=== PATIENT | female | born 1975 | race Caucasian/White ===

== ENCOUNTER → 2017-05-04 | Outpatient (CLI) | payer OTHER | END | disposition home or self-care (01) | LOC: RAD 04-16 14:00 → EDSTATUS 04-30 14:00 → RAD 13:43 | PROC: 3E0U33Z Introduction of Anti-inflammatory into Joints, Percutaneous Approach (ICD-10-PCS; principal; 2017-05-04) | DX: M25.552 Pain in left hip (principal) | CPT/HCPCS: 77012; J3301 ==

== ENCOUNTER 2018-05-22 19:13 | Emergency (ER) | payer OTHER ==
[~2018-05-22] VITALS: Ht 170.2 cm; Wt 125.3 kg
[2018-05-22 19:32] LABS: HEMOGLOBIN 12.7 G/DL (11.9-15.5); MCH 29.3 PG (29.0-34.0); MCHC 33.4 G/DL (30.0-36.0); MCV 87.8 FL (83-99); PLATELET COUNT 293 K/uL (156-360); RBC DIS.WIDTH-SD 40.9 % (39-53); RED BLOOD COUNT 4.33 M/uL (3.80-5.20); WHITE BLOOD COUNT 8.9 K/uL (4.1-10.2)
[2018-05-22 19:40] LABS: CHLORIDE 107 mEq/L (99-109); POTASSIUM 4.1 mEq/L (3.7-5.4); SODIUM 139 mEq/L (136-147)
[2018-05-22 19:42] LABS: GLUCOSE 103 mg/dL (70-99)
[2018-05-22 19:46] LABS: CREATININE 1.1 mg/dL (0.6-1.3); GFR ESTIMATE (CALCULATED) 58 mL/min/
[2018-05-22 19:47] LABS: UREA NITROGEN (BUN) 12 mg/dL (9-23)
[2018-05-22 19:52] LABS: TROP-I INTERPRETATION NEGATIVE; TROPONIN-I < 0.01 ng/mL (0.0-0.30)
[2018-05-22 21:06] LABS: THYROTROPIN (TSH) 3.2 MIU/L (0.4-5.5)
[2018-05-22 22:08] LABS: MAGNESIUM 1.9 mg/dl (1.3-2.7)
[2018-05-22 23:08] VITALS: BP 128/79
== END 2018-05-22 23:09 | disposition home or self-care (01) ==
LOC: EME 19:13
DX: R00.2 Palpitations (principal); R07.89 Other chest pain; F15.90 Other stimulant use, unspecified, uncomplicated; Z82.49 Family history of ischemic heart disease and other diseases of the circulatory system
CPT/HCPCS: 71046; 80048; 83735; 84443; 84484; 85027; 93005; 99281; 99285; J7030